=== PATIENT | male | born 2000 | race African-American/Black ===

== ENCOUNTER 2022-06-08 11:43 | Emergency (ER) | payer MEDICAID ==
[~2022-06-08] VITALS: Ht 180.3 cm; Wt 68.0 kg
[2022-06-08 11:49] VITALS: BP 128/70
== END 2022-06-08 15:08 | disposition left against medical advice (07) ==
LOC: ER 11:43
DX: J02.9 Acute pharyngitis, unspecified (principal)
CPT/HCPCS: 99281